=== PATIENT | male | born 1950 | race Asian ===

== ENCOUNTER 2019-02-28 20:01 | Inpatient (IN) | payer MEDICARE, MEDICAID ==
[~2019-02-28] VITALS: Ht 172.7 cm; Wt 72.3 kg
[2019-02-28] MEDS ORDERED: SODIUM CHLORIDE 0.9% 1,000 ML IV ONE (20:41)
[2019-02-28] MEDS ORDERED: ETOMIDATE 2MG/ML 10ML VIAL IV ONE (20:45)
[2019-02-28] MEDS ORDERED: SUCCINYLCHOLINE CHLORIDE 200MG/10ML IV ONE (20:45)
[2019-02-28] MEDS ORDERED: PROPOFOL 10MG/ML 100ML 100 ML IV ONE (21:15)
[2019-02-28 21:16] LABS: CHLORIDE 110 mEq/L (98-107)
[2019-02-28 21:18] LABS: BASOPHILS % 0.9 % (0.0-2.0); EOSINOPHILS % 2.1 % (0.0-5.0); HEMATOCRIT. 42.3 % (42.0-52.0); LYMPHOCYTES % 42.3 % (20.0-50.0); MEAN CORPUSCULAR HEMOGLOBIN 30.6 pg (28.0-32.0); MEAN CORPUSCULAR VOLUME 92.3 fL (80.0-94.0); MEAN PLATELET VOLUME 8.3 fl (7.4-10.4); MONOCYTES % 5.6 % (2.0-8.0); NEUTROPHILS % 49.1 % (40.0-76.0); PLATELET 247 x1000/uL (130-400); RED BLOOD CELL COUNT 4.59 mill/uL (4.7-6.1); RED CELL DISTRIBUTION WIDTH 13.8 % (11.6-14.6)
[2019-02-28 21:25] LABS: PROTHROMBIN TIME 10.1 sec (9.6-11.0)
[2019-02-28] MEDS ORDERED: LEVETIRACETAM 500MG PREMIX 100 ML IV ONE (21:30)
[2019-02-28] MEDS ORDERED: NICARDIPINE 40MG/200ML PREMIX 200 ML IV STA (21:38)
[2019-02-28] MEDS ORDERED: MANNITOL 20% (20GM/100ML) BAG 500ML PREMIX IV NR (22:00)
[2019-02-28] MEDS ORDERED: MANNITOL 20% 500 ML IV NR (22:15)
[2019-02-28 22:18] LABS: CLARITY URINE CLEAR (CLEAR); COLOR URINE YELLOW (YELLOW); KETONES URINE NEGATIVE (NEGATIVE); LEUKOCYTE ESTERASE URINE NEGATIVE (NEGATIVE); NITRITE URINE NEGATIVE (NEGATIVE); OCCULT BLOOD URINE NEGATIVE (NEGATIVE); PH URINE 7.5 (4.5-8.0); PROTEIN URINE TRACE (NEGATIVE); SPECIFIC GRAVITY URINE 1.014 (1.005-1.030); UROBILINOGEN URINE 0.2 E.U./dL (0.2-1.0)
[2019-02-28] MEDS ORDERED: LIDOCAINE HCL/EPINEPHRINE 1%-EPI 1:100,000 20 ML VIAL ONE (22:26)
[2019-02-28] MEDS ORDERED: THROMBIN (BOVINE) 5000 UNITS/VIAL TOP ONE ×2 (22:26→22:27)
[2019-02-28] MEDS ORDERED: BACITRACIN 50,000 UNITS/VIAL ONE (22:27)
[2019-02-28] MEDS ORDERED: BACITRACIN 15GM TUBE TOP ONE (22:27)
[2019-02-28 22:44] LABS: BG BASE EXCESS -3.9 mmol/L (-2.0-2.0); BG CARBOXYHEMOGLOBIN 0.4 % (0.5-1.5); BG DEOXYHEMOGLOBIN 0.8 % (0.0-5.0); BG FRACTION INSPIRED OXYGEN 100; BG HCO3 ACT 21.5 mmol/L (22.0-26.0); BG METHEMOGLOBIN 0.2 % (0.0-1.5); BG OXYGEN SATURATION 99.2 % (92.0-98.5); BG OXYHEMOGLOBIN 98.6 % (94.0-97.0); BG PCO2 40.3 mmHg (35.0-45.0); BG PH 7.344 (7.350-7.450); BG PO2 257.1 mmHg (75.0-100.0); BG SAMPLE SITE RIGHT RADIAL; BG TIDAL VOLUME(mL) 550 mL; BG TOTAL HEMOGLOBIN 13.9 g/dL (12.0-18.0); BG VENT MODE VENT - A/C; BG VENT RATE 20 set
[2019-02-28] MEDS ORDERED: PROPOFOL 200MG/20ML VIAL IV ONE (22:49)
[2019-02-28] MEDS ORDERED: ROCURONIUM BROMIDE 10MG/ML VIAL 5ML IV ONE (22:49)
[2019-02-28] MEDS ORDERED: FENTANYL CITRATE/PF 50MCG/ML 2ML VIAL ONE (22:49)
[2019-02-28] MEDS ORDERED: LIDOCAINE HCL/PF 1% 10 MG/ML 5ML VIAL ONE (23:07)
[2019-02-28] MEDS ORDERED: EPHEDRINE SULFATE 50MG/ML VIAL ONE (23:10)
[2019-02-28] MEDS ORDERED: SODIUM CHLORIDE 0.9% 10ML VIAL ONE (23:11)
[2019-03-01] VITALS (55 sets, daily range): BP systolic 96–146; BP diastolic 41–79
[2019-03-01] MEDS ORDERED: CEFAZOLIN SODIUM 1000MG/VIAL ONE (00:21)
[2019-03-01] MEDS ORDERED: NICARDIPINE 100 MG in SODIUM CHLORIDE 0.9% 60 ML IV PRN (01:15)
[2019-03-01] MEDS ORDERED: MORPHINE SULFATE 2 MG/ML CPJ (NOT FOR IM USE) IV PRN (01:15)
[2019-03-01] MEDS ORDERED: IOHEXOL-350 100 ML BOTTLE ONE ×2 (01:53→07:18)
[2019-03-01] MEDS ORDERED: CEFAZOLIN 1000MG PREMIX 50 ML IV SCH (02:00)
[2019-03-01] MEDS ORDERED: PROPOFOL 10MG/ML 100ML 100 ML IV PRN (02:15)
[2019-03-01] MEDS ORDERED: IPRATROPIUM/ALBUTEROL 0.5-3(2.5)MG/3ML NEB HHN PRN (02:15)
[2019-03-01] MEDS ORDERED: ASPI-1393 PO (02:27)
[2019-03-01] MEDS ORDERED: AMAN100T MT (02:28)
[2019-03-01] MEDS ORDERED: CHOL200010 MT (02:32)
[2019-03-01] MEDS ORDERED: IBUP-2029 PO (02:32)
[2019-03-01] MEDS ORDERED: ROSU5TAB PO (02:32)
[2019-03-01] MEDS ORDERED: DEXT 5%/LACTATED RINGERS 1,000 ML IV SCH (03:00)
[2019-03-01] MEDS: NICARDIPINE 100 MG in SODIUM CHLORIDE 0.9% 60 ML IV PRN ×2 (03:25→12:10)
[2019-03-01] MEDS: CEFAZOLIN 1000MG PREMIX 50 ML IV SCH ×2 (03:26→12:09)
[2019-03-01 05:04] LABS: BASOPHILS % 0.2 % (0.0-2.0); HEMATOCRIT. 39.8 % (42.0-52.0); HEMOGLOBIN. 13.6 g/dL (14.0-18.0); LYMPHOCYTES % 8.5 % (20.0-50.0); MEAN CORPUSCULAR HEMOGLOBIN 31.3 pg (28.0-32.0); MEAN CORPUSCULAR VOLUME 91.7 fL (80.0-94.0); MEAN PLATELET VOLUME 8.1 fl (7.4-10.4); MONOCYTES % 4.5 % (2.0-8.0); NEUTROPHILS % 86.8 % (40.0-76.0); PLATELET 232 x1000/uL (130-400); RED BLOOD CELL COUNT 4.34 mill/uL (4.7-6.1); RED CELL DISTRIBUTION WIDTH 14.1 % (11.6-14.6)
[2019-03-01 05:12] LABS: CHLORIDE 111 mEq/L (98-107)
[2019-03-01] MEDS: DEXAMETHASONE 4MG/ML 1ML VIAL IV SCH ×2 (05:16→12:09)
[2019-03-01 06:17] LABS: *AMPHETAMINES SCREEN URINE NEGATIVE (NEGATIVE); *BARBITURATES SCREEN URINE NEGATIVE (NEGATIVE); *BENZODIAZEPINES SCREEN URINE PRESUMTIVE POSITIVE (NEGATIVE)
[2019-03-01 06:18] LABS: *COCAINE SCREEN URINE NEGATIVE (NEGATIVE); METHADONE URINE SCREEN NEGATIVE (NEGATIVE); OPIATES URINE SCREEN NEGATIVE (NEGATIVE); PHENCYCLIDINE URINE SCREEN NEGATIVE (NEGATIVE)
[2019-03-01 06:20] LABS: CANNABINOID URINE SCREEN NEGATIVE (NEGATIVE)
[2019-03-01 07:11] LABS: BG BASE EXCESS -5.2 mmol/L (-2.0-2.0); BG CARBOXYHEMOGLOBIN 0.2 % (0.5-1.5); BG DEOXYHEMOGLOBIN 2.2 % (0.0-5.0); BG HCO3 ACT 17.5 mmol/L (22.0-26.0); BG METHEMOGLOBIN 0.1 % (0.0-1.5); BG OXYGEN SATURATION 97.8 % (92.0-98.5); BG OXYHEMOGLOBIN 97.5 % (94.0-97.0); BG PCO2 26.6 mmHg (35.0-45.0); BG PH 7.437 (7.350-7.450); BG PO2 108.9 mmHg (75.0-100.0); BG SAMPLE SITE A-LINE; BG TIDAL VOLUME(mL) 550 mL; BG TOTAL HEMOGLOBIN 12.6 g/dL (12.0-18.0); BG VENT MODE VENT - A/C; BG VENT RATE 20 set
[2019-03-01] MEDS ORDERED: LEVETIRACETAM 500MG PREMIX 100 ML IV SCH (09:00)
[2019-03-01] MEDS ORDERED: LEVETIRACETAM 500MG in SODIUM CHLORIDE 0.9% 100ML IV SCH (09:00)
[2019-03-01] MEDS ORDERED: IPRATROPIUM/ALBUTEROL 0.5-3(2.5)MG/3ML NEB HHN SCH (12:00)
[2019-03-02] MEDS ORDERED: PANTOPRAZOLE SODIUM 40 MG/VIAL IV SCH (09:00)
== END 2019-03-01 16:11 | disposition short-term general hospital (02) | DRG 21 ==
LOC: ER 20:01 → MICUSO 23:49 → EDBEDREQ 03-01 00:04 → EDBEDREQTM 03-01 00:04 → ENRESERV 03-01 00:06 → MICUSO 03-01 08:20
PROVIDERS: ADMIT Internal Medicine; ATTEND Internal Medicine
PROC: 0BH17EZ Insertion of Endotracheal Airway into Trachea, Via Natural or Artificial Opening (ICD-10-PCS; 2019-02-28)
PROC: 5A1945Z Respiratory Ventilation, 24-96 Consecutive Hours (ICD-10-PCS; 2019-02-28)
PROC: 00C60ZZ Extirpation of Matter from Cerebral Ventricle, Open Approach (ICD-10-PCS; principal; 2019-03-01)
PROC: 009600Z Drainage of Cerebral Ventricle with Drainage Device, Open Approach (ICD-10-PCS; 2019-03-01)
PROC: 0NU00JZ Supplement Skull with Synthetic Substitute, Open Approach (ICD-10-PCS; 2019-03-01)
DX: I61.1 Nontraumatic intracerebral hemorrhage in hemisphere, cortical (principal); J96.00 Acute respiratory failure, unspecified whether with hypoxia or hypercapnia; G93.40 Encephalopathy, unspecified; E78.00 Pure hypercholesterolemia, unspecified; E87.8 Other disorders of electrolyte and fluid balance, not elsewhere classified; E78.5 Hyperlipidemia, unspecified; E87.6 Hypokalemia; F17.210 Nicotine dependence, cigarettes, uncomplicated; I10 Essential (primary) hypertension; Z79.82 Long term (current) use of aspirin
CPT/HCPCS: 36415; 36600; 70496; 70498; 71045; 80048; 80061; 80305; 81003; 82375; 82805; 82962; 83036; 83880; 84145; 84484; 93005; 93970; 94002; 94003; 99291; C1713; C1725; C1758; J0330; J0690; J1100; J1953; J2704; J3010; J3490; J7030; J7050; J7120; Q9967; A4315